=== PATIENT | female | born 1990 | race Caucasian/White ===

== ENCOUNTER 2025-01-18 14:25 | Emergency (ER) | payer OTHER, SELFPAY ==
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
[2025-01-18 14:31] VITALS: BP 142/102; PULSE 88; RESP 18; TEMP 36.7; O2SAT 100; BMI 31.8
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
[2025-01-18 15:35] VITALS: BP 134/93; PULSE 95; O2SAT 100
[2025-01-18] MEDS: tetanus-dipt-pertussis 0.5 mL SDV IM (16:10)
[2025-01-18 16:27] VITALS: BP 145/94; PULSE 100; O2SAT 100
== END 2025-01-18 16:27 | disposition home or self-care (01) ==
PROVIDERS: Emergency Provider Emergency Medicine
DX: S01.81XA Laceration without foreign body of other part of head, initial encounter (principal); S09.90XA Unspecified injury of head, initial encounter; S49.91XA Unspecified injury of right shoulder and upper arm, initial encounter; V89.2XXA Person injured in unspecified motor-vehicle accident, traffic, initial encounter
CPT/HCPCS: 12013; 70450; 73030; 73080; 90471; 90715; 99284